=== PATIENT | male | born 1970 | race Caucasian/White ===

== ENCOUNTER 2018-07-04 16:10 | Emergency (ER) | payer OTHER ==
[~2018-07-04] VITALS: Ht 180.3 cm; Wt 79.4 kg
[~2018-07-04 16:10] MED LIST: ADDERALL 10 MG10 MG PO; ASPIRIN325 PO; COZAAR 50 MG TA50 M2 PO; CRESTOR20 MG PO; EFFIENT10 MG PO; MOBIC7.5 MG PO; NITROGLYCERIN0.4 MG SUBLING; PROTONIX 20 MG20 M1 PO; XANAX 0.5 MG0.5 MG PO; ZANAFLEX4 MG PO
[2018-07-04 16:49] LABS: ABSOLUTE NEUTROPHILS 4.8 thou/uL (1.4-8.2); BASOPHILS 0.4 % (0.0-2.0); EOSINOPHILS 1.2 % (0.0-3.0); HEMATOCRIT 46.4 % (42.0-52.0); HEMOGLOBIN 16.1 gm/dL (14.0-18.0); LYMPHOCYTES 27.2 % (24.0-44.0); MCH 32.3 pg (26.0-34.0); MCHC 34.7 g/dL (28.0-37.0); MCV 93.1 fL (80.0-100.0); MONOCYTES 11.1 % (1.0-8.0); PLATELET COUNT 213 thou/uL (150-400); POLYS 60.1 % (36.0-66.0); RBC 4.99 mil/uL (4.50-6.00); RDW 12.6 % (10.5-14.5); WBC 7.9 thou/uL (4.0-11.0)
[2018-07-04 16:58] LABS: ANION GAP 10 mmol/L (7-16); BUN 13 mg/dL (7-18); CALCIUM 9.5 mg/dL (8.5-10.1); CHLORIDE 103 mmol/L (98-107); CO2 27 mmol/L (21-32); CREATININE 0.8 mg/dL (0.7-1.3); GLUCOSE 95 mg/dL (74-106); POTASSIUM 4.4 mmol/L (3.5-5.1); SODIUM 140 mmol/L (136-145)
[2018-07-04 17:06] LABS: TROPONIN-I <0.06 ng/mL (<0.06)
[2018-07-04 17:48] VITALS: BP 146/84
--- NOTE | 2018-07-05 08:08 | EKG ---
[facility] [employer] [place] [address] ELECTROCARDIOGRAM REPORT Name: TONY CLEMENS Room #: DEP [facility]#: [id number] Admission: 07/04/18 Attend Phys: Discharge: 07/04/18 Date of : 68 Report #: [id number] THIS REPORT FOR: //name// [facility] ED Test Date: 2018-07-04 Test Time: 16:17:13 Pat Name: TONY CLEMENS Department: Room: Gender: M Patient Transport Officer: : 1970 Requested By: Vick Elizabeth Order Number: [id number] MD: Pavan Zaragoza Measurements Intervals [place] Rate: 65 P: 8 HI: 131 QRS: -47 QRSD: 107 T: 43 QT: 408 QTc: 425 Interpretive Statements Sinus rhythm Incomplete RBBB and LAFB Anteroseptal infarct, age indeterminate Compared to ECG 02/23/2018 11:16:57 Incomplete right bundle-branch block now present Electronically Signed On 07-05-2018 8:08:16 STRUCTURAL TECHNICIAN by Pavan Zaragoza [email or web address] <ELECTRONICALLY SIGNED> By: Pavan Zaragoza MD, [facility] 07/05/18 0808 16 16 Pavan Zaragoza MD, [facility] /EPI
== END 2018-07-04 18:17 | disposition home or self-care (01) ==
LOC: ER 16:10
PROVIDERS: Physician Assistant
DX: R07.89 Other chest pain (principal); I10 Essential (primary) hypertension; E78.00 Pure hypercholesterolemia, unspecified; F41.9 Anxiety disorder, unspecified

== ENCOUNTER → 2020-11-17 | Outpatient (CLI) | payer BC, OTHER | LOC: SJCVCIMAG 11-10 09:22 | PROVIDERS: ATTEND Internal Medicine | DX: I25.10 Atherosclerotic heart disease of native coronary artery without angina pectoris (principal); E78.5 Hyperlipidemia, unspecified; I10 Essential (primary) hypertension; Z95.5 Presence of coronary angioplasty implant and graft ==